=== PATIENT | male | born 1965 | race Caucasian/White ===

== ENCOUNTER → 2016-07-07 | Outpatient (CLI) | payer OTHER ==
[~2016-07-07] MED LIST: ATIVAN0.5 MG PO; AUGMENTIN 875875 MG PO; LAMICTAL100 MG PO; LEVAQUIN750 M1 PO; METOPROLOL SUC100 M2 PO; Motrin,Rufen800 MG PO; NO DAILY MEDS; NORCO 5-325 TA1 EACH PO; OMEPRAZOLE40 MG PO; PREDNISONE20 M1 PO; SERTRALINE HYDR50 MG PO
--- NOTE | ~2016-07-07 | EEG ---
[place], [place] ELECTROENCEPHALOGRAM REPORT NAME: MAK FAY UNIT #: [id number] ROOM: DOCTOR: JR EL MD,FRANCOIS DOS: 07/07/2016 INTERPRETATION: This 51-year-old man on metoprolol, Zoloft as well as Ativan displayed the following underlying rhythms: fairly well-organized, synchronous, 12 Hz, 20-30 microvolts alpha-rhythms in both posterior regions but only briefly. 20 Hz at 10-20 microvolts beta-rhythms were present both precentral and posterior regions. There was no checking of reactivity to eye opening and eye closing. Hyperventilation was not performed. There were no abnormalities to photic stimulation. The patient did not fall asleep during this tracing. Throughout this recording, there were no focal abnormalities of activity. IMPRESSION: Normal awake EEG. Clinical correlation was highly advised. FRANCOIS EL MD CM:EEG:ELECTROENCEPHALOGRAM REPORT [id number] MD FRANCOIS LE JR
== END | disposition home or self-care (01) ==
LOC: LAB 09:59 → CP 11:00
DX: R25.1 Tremor, unspecified (principal)

== ENCOUNTER → 2016-09-16 | Outpatient (CLI) | payer OTHER | END | disposition home or self-care (01) | LOC: CT 13:53 | DX: I62.00 Nontraumatic subdural hemorrhage, unspecified (principal) ==

== ENCOUNTER 2024-09-09 12:13 | Emergency (ER) | payer OTHER ==
[~2024-09-09] VITALS: Ht 172.7 cm; Wt 78.9 kg
[2024-09-09] MEDS ORDERED: CIPROFLOX-DEXA7.5 ML OT (12:25)
[2024-09-09] MEDS ORDERED: Amoxicillin/Clavulanate Pota 875 MG TAB PO ONE (12:35)
[2024-09-09] MEDS ORDERED: Acetaminophen/Oxycodone 5 MG/325 MG TABLET PO ONE (12:35)
[2024-09-09] MEDS ORDERED: MELOXICAM15 MG PO (12:40)
[2024-09-09] MEDS ORDERED: AMOX-CLAV 875-1 EACH PO (12:40)
== END 2024-09-09 14:42 | disposition home or self-care (01) ==
LOC: ED 12:13
DX: H70.92 Unspecified mastoiditis, left ear (principal); F17.290 Nicotine dependence, other tobacco product, uncomplicated; Z98.890 Other specified postprocedural states